=== PATIENT | female | born 1970 | race African-American/Black ===

== ENCOUNTER 2020-09-30 08:23 | Emergency (ER) | payer OTHER ==
[~2020-09-30] VITALS: Ht 162.6 cm; Wt 67.2 kg
[2020-09-30 09:00] LABS: EOSINOPHILS 1.2 % (0.0-3.0); HEMATOCRIT 49.4 % (37.0-47.0); HEMOGLOBIN 16.5 gm/dL (12.0-15.0); MCH 30.1 pg (26.0-34.0); MCHC 33.4 g/dL (28.0-37.0); PLATELET COUNT 304 thou/uL (150-400); POLYS 55.8 % (36.0-66.0); RBC 5.49 mil/uL (4.20-5.00); RDW 14.2 % (10.5-14.5); WBC 14.4 thou/uL (4.0-11.0)
[2020-09-30 09:14] LABS: ANION GAP 11 mmol/L (7-16); BUN 21 mg/dL (7-18); CALCIUM 9.3 mg/dL (8.5-10.1); CHLORIDE 94 mmol/L (98-107); CO2 28 mmol/L (21-32); CREATININE 0.9 mg/dL (0.6-1.0); GLUCOSE 160 mg/dL (74-106); POTASSIUM 3.6 mmol/L (3.5-5.1); SODIUM 133 mmol/L (136-145)
[2020-09-30 09:21] LABS: ALBUMIN 3.4 g/dL (3.4-5.0); DIRECT BILIRUBIN 0.1 mg/dL (<0.1-0.2); SGOT 58 U/L (15-37); SGPT 56 U/L (30-65); TOTAL BILIRUBIN 0.6 mg/dL (0.2-1.0); TROPONIN-I <0.06 ng/mL (<0.06)
--- NOTE | 2020-09-30 10:19 | EKG ---
[address] [address] [place] [address] ELECTROCARDIOGRAM REPORT Name: ELOISA ORDOÑEZ [id number] Admission: 09/30/20 Attend Phys: Discharge: Date of : 74 Report #: [id number] [facility] ED Test Date: 2020-09-30 Test Time: 08:39:02 Pat Name: ELOISA ORDOÑEZ Department: Room: Gender: F Qa Manager: N0 : 1970 Requested By: Kasandra Warner Order Number: [id number] MD: Abhijit Bowman Measurements Intervals [place] Rate: 104 P: 46 NH: 176 QRS: 84 QRSD: 89 T: 33 QT: 371 QTc: 488 Interpretive Statements Sinus tachycardia Probable anteroseptal infarct, old Baseline wander in lead(s) V6 No previous ECG available for comparison Electronically Signed On 09-30-2020 10:19:07 CDT by Abhijit Bowman [email or web address] <ELECTRONICALLY SIGNED> By: Abhijit Bowman MD, [facility] 09/30/20 1019 [id number] Abhijit Bowman MD, FACC /EPI
[2020-09-30 11:31] VITALS: BP 143/77
== END 2020-09-30 11:34 ==
LOC: ER 08:23
PROVIDERS: Emergency Medicine
DX: R06.2 Wheezing (principal); E11.9 Type 2 diabetes mellitus without complications; E78.5 Hyperlipidemia, unspecified; Z93.0 Tracheostomy status

== ENCOUNTER 2020-10-23 23:28 | Emergency (ER) | payer OTHER ==
[2020-10-24 00:14] LABS: ABSOLUTE NEUTROPHILS 7.2 thou/uL (1.4-8.2); BASOPHILS 0.4 % (0.0-2.0); HEMATOCRIT 41.3 % (37.0-47.0); HEMOGLOBIN 13.7 gm/dL (12.0-15.0); LYMPHOCYTES 18.2 % (24.0-44.0); MCH 30.3 pg (26.0-34.0); MCHC 33.3 g/dL (28.0-37.0); MCV 90.8 fL (80.0-100.0); MONOCYTES 15.9 % (1.0-8.0); PLATELET COUNT 286 thou/uL (150-400); POLYS 63.5 % (36.0-66.0); RBC 4.54 mil/uL (4.20-5.00); RDW 13.9 % (10.5-14.5); WBC 11.3 thou/uL (4.0-11.0)
[2020-10-24 00:18] LABS: CALCIUM 9.1 mg/dL (8.5-10.1); CREATININE 0.9 mg/dL (0.6-1.0); POTASSIUM 4.4 mmol/L (3.5-5.1)
[2020-10-24 00:22] LABS: ALBUMIN 3.1 g/dL (3.4-5.0); TOTAL BILIRUBIN 0.6 mg/dL (0.2-1.0); TOTAL PROTEIN 7.9 g/dL (6.4-8.2)
[2020-10-24] MEDS ORDERED: HYDROCHLOROTHIA50 MG PER TUBE (01:26)
[2020-10-24] MEDS ORDERED: HYDROXYZINE HCL25 M2 PO (01:27)
[2020-10-24] MEDS ORDERED: KEPPRA100 MG/1 M PER TUBE (01:28)
[2020-10-24] MEDS ORDERED: LIPITOR 10 MG10 M1 PER TUBE (01:29)
[2020-10-24] MEDS ORDERED: LOPERAMIDE2 MG PER TUBE (01:31)
[2020-10-24] MEDS ORDERED: LOPRESSOR50 MG PER TUBE (01:33)
[2020-10-24] MEDS ORDERED: POTASSIUM20 PER TUBE (01:33)
[2020-10-24] MEDS ORDERED: ZOLOFT100 MG PER TUBE (01:33)
[2020-10-24 03:57] VITALS: BP 140/102
== END 2020-10-24 04:00 | disposition short-term general hospital (02) ==
LOC: ER 23:28
PROVIDERS: Emergency Medicine
DX: K94.23 Gastrostomy malfunction (principal); J95.03 Malfunction of tracheostomy stoma; E11.9 Type 2 diabetes mellitus without complications; E78.5 Hyperlipidemia, unspecified; I10 Essential (primary) hypertension; F33.9 Major depressive disorder, recurrent, unspecified; Y83.8 Other surgical procedures as the cause of abnormal reaction of the patient, or of later complication, without mention of misadventure at the time of the procedure; Z86.73 Personal history of transient ischemic attack (TIA), and cerebral infarction without residual deficits; Z79.899 Other long term (current) drug therapy; Z86.718 Personal history of other venous thrombosis and embolism; Z99.81 Dependence on supplemental oxygen

== ENCOUNTER 2020-12-09 05:31 | Inpatient (IN) | payer OTHER ==
[~2020-12-09] VITALS: Ht 160 cm; Wt 68.0 kg
[~2020-12-09 05:31] MED LIST: HYDROCHLOROTHIA50 MG PER TUBE; HYDROXYZINE HCL25 M2 PO; KEPPRA100 MG/1 M PER TUBE; LIPITOR 10 MG10 M1 PER TUBE; LOPERAMIDE2 MG PER TUBE; LOPRESSOR50 MG PER TUBE; POTASSIUM CHLO20 MEQ PER TUBE; ZOLOFT100 MG PER TUBE
[2020-12-09 05:32] VITALS: BP 152/74
[2020-12-09 06:01] LABS: ABSOLUTE NEUTROPHILS 7.8 thou/uL (1.4-8.2); BASOPHILS 0.7 % (0.0-2.0); HEMATOCRIT 45.3 % (37.0-47.0); HEMOGLOBIN 15.1 gm/dL (12.0-15.0); LYMPHOCYTES 17.5 % (24.0-44.0); MCH 30.8 pg (26.0-34.0); MCHC 33.3 g/dL (28.0-37.0); MCV 92.5 fL (80.0-100.0); MONOCYTES 11.5 % (1.0-8.0); PLATELET COUNT 274 thou/uL (150-400); POLYS 69.3 % (36.0-66.0); RDW 13.7 % (10.5-14.5); WBC 11.3 thou/uL (4.0-11.0)
[2020-12-09 06:04] LABS: ANION GAP 14 mmol/L (7-16); BUN 18 mg/dL (7-18); CALCIUM 9.1 mg/dL (8.5-10.1); CHLORIDE 101 mmol/L (98-107); CO2 23 mmol/L (21-32); CREATININE 1.1 mg/dL (0.6-1.0); GLUCOSE 126 mg/dL (74-106); SODIUM 138 mmol/L (136-145)
[2020-12-09 06:14] LABS: ALBUMIN 3.5 g/dL (3.4-5.0); DIRECT BILIRUBIN 0.2 mg/dL (<0.1-0.2); SGOT 39 U/L (15-37); SGPT 47 U/L (14-59); TOTAL BILIRUBIN 0.6 mg/dL (0.2-1.0); TOTAL PROTEIN 8.5 g/dL (6.4-8.2); TROPONIN-I <0.06 ng/mL (<0.06)
[2020-12-09] MEDS ORDERED: ACETAMINOP325 MG/101 PER TUBE (06:30)
[2020-12-09] MEDS ORDERED: NORVASC10 MG PER TUBE (06:31)
[2020-12-09] MEDS ORDERED: AMIODARONE HCL400 MG PER TUBE (06:31)
[2020-12-09] MEDS ORDERED: ARICEPT10 M1 PER TUBE (06:32)
[2020-12-09 08:20] VITALS: BP 128/76
--- NOTE | 2020-12-09 08:51 | NUR ---
ATTEMPTED TO CALL REPORT, SPOKE TO LELA AND WAS NOTIFIED NO CHANGE CERTIFIED TOWER CLIMBER IS AVAILABLE FOR REPORT. NOTIFIED CHARGE AND PAGED RT TO ASSIST.
[2020-12-09 08:55] VITALS: BP 157/88
[2020-12-09 09:41] VITALS: BP 131/88
[2020-12-09] MEDS ORDERED: BACLOFEN5 MG PER TUBE (14:20)
[2020-12-09] MEDS ORDERED: BUSPIRONE HCL5 MG PER TUBE (14:22)
[2020-12-09] MEDS ORDERED: DANTROLENE SOD PER TUBE (14:24)
[2020-12-09] MEDS ORDERED: DEPAKOTE SPRIN125 MG PER TUBE (14:24)
[2020-12-09] MEDS ORDERED: DOCUSATE S50 MG/5 ML PER TUBE (14:25)
[2020-12-09] MEDS ORDERED: ELIQUIS5 MG PER TUBE (14:26)
[2020-12-09] MEDS ORDERED: HUMULINR100 SUBQ (14:29)
[2020-12-09] MEDS ORDERED: IPRAT-ALBUT 0.5-3 ML INH (14:32)
[2020-12-09] MEDS ORDERED: MELATIN3 MG PER TUBE (14:33)
[2020-12-09] MEDS ORDERED: MIDOL CAPLET1 EAC1 PER TUBE (14:37)
[2020-12-09] MEDS ORDERED: PRILOSEC10 MG PER TUBE (14:37)
[2020-12-09] MEDS ORDERED: TRANSDERM-SCOP1 EACH TRANSDERM (14:39)
[2020-12-09] MEDS ORDERED: SODIUM CHLORIDE1 G2 PER TUBE (14:40)
[2020-12-09] MEDS ORDERED: SSD CREAM 1% 5050 GM TOP (14:40)
[2020-12-09] MEDS ORDERED: VISINE TEARS DR15 ML OPHTHALMIC (14:41)
[2020-12-09] MEDS ORDERED: ONDANSETRON4 MG/5 ML PER TUBE (14:42)
[2020-12-09 14:46] VITALS: BP 136/87
--- NOTE | 2020-12-09 15:23 | EKG ---
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: : 1970 Requested By: Kasandra Warner Order Number: [id number] MD: Abhijit Bowman Measurements Intervals [place] Rate: 108 P: 69 [place]: 169 QRS: 113 QRSD: 89 T: 35 QT: 359 QTc: 481 Interpretive Statements Sinus tachycardia Left atrial enlargement Right axis deviation Probable anteroseptal infarct, old Minimal ST elevation, inferior leads Compared to ECG 09/30/2020 08:39:02 No significant change was found Electronically Signed On 12-09-2020 15:23:08 CDT by Abhijit Bowman [email or web address] <ELECTRONICALLY SIGNED> By: Abhijit Bowman MD, [facility] 12/09/20 1523 0618 7 Abhijit Bowman MD, [facility] /EPI
--- NOTE | 2020-12-09 18:29 | NUR ---
PATIENT ADMITTED TO ROOM EARLIER. SHE IS NON VERBAL. HAS A TRACH. PEG TUBE. FIGHTS AND GRAB STAFF WHEN PROVIDING CARE. KEPT CLEAN AND DRY. WILL CONT WITH PLAN OF CARE.
[2020-12-09 19:08] VITALS: BP 129/75
[2020-12-10 03:52] VITALS: BP 153/93
[2020-12-10 06:00] LABS: URINE BILIRUBIN NEGATIVE (Negative); URINE BLOOD 2+ (Negative); URINE CLARITY CLOUDY; URINE COLOR YELLOW; URINE GLUCOSE-RANDOM* NEGATIVE (Negative); URINE KETONES TRACE (Negative); URINE NITRITE-REFLEX NEGATIVE (Negative); URINE PROTEIN (DIPSTICK) TRACE (Negative); URINE SPECIFIC GRAVITY 1.025 (1.005-1.035)
[2020-12-10 06:03] LABS: CALCIUM 8.5 mg/dL (8.5-10.1); CREATININE 0.7 mg/dL (0.6-1.0); POTASSIUM 4.7 mmol/L (3.5-5.1)
[2020-12-10 06:05] LABS: URINE LEUKOCYTES-REFLEX 1+ (Negative)
[2020-12-10 06:06] LABS: CASTS None Seen /LPF (None Seen); MUCUS None Seen strn/LPF (None Seen); SQUAMOUS None Seen /LPF (0-3)
[2020-12-10 06:07] LABS: BACTERIA-REFLEX >30 Many /HPF (None Seen); CRYSTALS None Seen /LPF (None Seen); URINE RBC 1-2 Rare /HPF (NONE SEEN); URINE WBC-REFLEX 0-5 Rare /HPF (0-5)
--- NOTE | 2020-12-10 06:26 | NUR ---
PEG TUBE FEEDING AT 68ML AND 200ML H20 Q4. PT IS AMS, HAS CATATONIC LOOK, BUT WILL GRAB AND PULL AT YOU WITH LEFT HAND. POC WITH IVPB ANTIBIOTICS. MRSA PCR AND URINE SENT TO LAB. VSS. PT HAS PATCH BEHIND LEFT EAR. Q2 TURNS AND HOURLY ROUNDING.
[2020-12-10 06:58] LABS: HEMATOCRIT 35.6 % (37.0-47.0); MCH 31.9 pg (26.0-34.0); MCHC 34.6 g/dL (28.0-37.0); MCV 92.2 fL (80.0-100.0); RBC 3.86 mil/uL (4.20-5.00); RDW 13.9 % (10.5-14.5); WBC 6.4 thou/uL (4.0-11.0)
[2020-12-10 07:02] LABS: HEMOGLOBIN 12.3 gm/dL (12.0-15.0)
--- NOTE | 2020-12-10 07:06 | EKG ---
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 : 1970 Requested By: Glendy Santamaria Order Number: [id number] MD: Austin Arce Measurements Intervals [place] Rate: 111 P: 76 AR: 180 QRS: 101 QRSD: 76 T: 23 QT: 329 QTc: 447 Interpretive Statements Sinus tachycardia Right axis deviation Probable anteroseptal infarct, old ST elevation, consider inferior injury Compared to ECG 09/30/2020 08:39:02 Right-axis deviation now present ST (T wave) deviation now present Myocardial infarct finding still present Electronically Signed On 12-10-2020 7:05:51 CDT by Austin Arce [email or web address] <ELECTRONICALLY SIGNED> By: Austin Arce MD, FAC 12/10/20 0705 5 5 Austin Arce MD, [facility] /EPI
[2020-12-10 07:28] VITALS: BP 124/66
--- NOTE | 2020-12-10 07:39 | NUR ---
WOUND CARE CONSULT; PER NURSING STAFF PT CONTACTED BUT HAS NO WOUNDS, IN NEED OF LOW AIR LOSS PUMP TO BED, ORDERED TODAY, WILL DC WOUND CONSULT AND ADVISED STAFF TO REORDER IF NEEDED RECOMMENDATIONS; LOW AIR LOSS PUMP TO BED, TURN Q 2HOURS AND PRN, OFF LOADING, PROVIDE GOOD SKIN CARE SIGNALER AWARE
--- NOTE | 2020-12-10 11:42 | NUR ---
CM S/W WITH PT'S FATHER AND GERTRUDE W/[facility], PT HAS TRACH AND NONVERBAL. PER PARK, PT WAS LIVING IN [place] IN [facility] AND TRANSFERRED TO [facility] THEY COULD FIND LTC FACILITY IN THE AREA THAT WOULD ACCEPT TRACH. PT HAD STROKE AND SIEZURE IN JANUARY OF 2020. PRIOR TO STROKE PT WAS INDEPENDENT. PT HAS MEDICAID PENDING AND HAS BEEN AT [facility] FOR 6 MOS/PER GERTRUDE. PT IS W/C TO BEDBOUND. THE PLAN AT D/C IS FOR PT TO RTRN TO [facility]. CM TO CONT TO FOLLOW.
[2020-12-10 15:27] VITALS: BP 130/74
[2020-12-10 20:53] VITALS: BP 132/90
[2020-12-11 04:45] VITALS: BP 127/83
[2020-12-11 05:28] LABS: HEMATOCRIT 35.9 % (37.0-47.0); HEMOGLOBIN 12.3 gm/dL (12.0-15.0); MCH 31.6 pg (26.0-34.0); MCHC 34.2 g/dL (28.0-37.0); MCV 92.2 fL (80.0-100.0); RBC 3.89 mil/uL (4.20-5.00); RDW 13.6 % (10.5-14.5)
[2020-12-11 05:39] LABS: CALCIUM 8.8 mg/dL (8.5-10.1); CREATININE 0.8 mg/dL (0.6-1.0); PHOSPHORUS 2.9 mg/dL (2.6-4.7)
[2020-12-11 05:44] LABS: POTASSIUM 3.3 mmol/L (3.5-5.1)
[2020-12-11 07:31] VITALS: BP 142/75
--- NOTE | 2020-12-11 15:24 | NUR ---
SUSAN reviewed chart and spoke with nursing and attending physician. Pt is progressing towards goals for discharge. Discharge back to [facility] is anticipated for tomorrow. Pt remains on IV abx. Pt has trach/peg in place. SUSAN faxed clinical/therapy info to [facility] for review. Discussed with Manjula in admissions, who confirms they are able to accept pt back tomorrow. SUSAN spoke with pt's father, Benjamin, via phone to provide update and discuss discharge. Pt's father states he will be traveling for [place] to tomorrow and will plan to see pt tomorrow. He is agreeable with discharge plan. SUSAN is following to assist as needed with discharge planning.
[2020-12-11 15:53] VITALS: BP 138/86
--- NOTE | 2020-12-11 16:44 | NUR ---
CARE ASSUMMED THIS AM, PT NONVERBAL. ALERT TO SELF. UNABLE TO FOLLOW VERBAL COMMANDS. TRACH IN PLACE WITH OXYGEN. REPOSITION EVERY 2 HOURS. INCONTINENT OF BOWEL AND URINE. PEG TUBE IN PLACE, TF STOPPED THIS AT 9AM, WATER FLUSH PERR ORDER AND ZERO RESIDUAL SO FAR. ANTICIAPTING FOR D/C TMR. FALL PRECAUTIONS IN PLACE
[2020-12-11 19:18] VITALS: BP 140/75
[2020-12-12 03:42] VITALS: BP 121/73
[2020-12-12 07:34] VITALS: BP 130/79
--- NOTE | 2020-12-12 07:37 | NUR ---
PROGRESS PT ALERT NON VERBAL BUT SMILES AND NODS HEAD WHEN SPOKEN TO. RESISTS CARES PUSHES AND GRABS YOU, TRIES TO BEND YOUR FINGERS. PT IS VERY FEAFUL DURING PERICARE AND GETS VERY COMBATIVE. PULLED IV OUT DURING [facility]ARE AND HER STRUGGLE RESTARTED IN LVF 22 GAUGE. TUBE FEEDING AT 68CC/HR AL NIGHT RESIDUAL CHECKED WITH LESS THAN 10 CC EACH TIME, 200 CC H2O FLUSHS QHRS TOLERATED WELL. TRACH IN PLACE SUCTIONED NEEDED THIN FROTHY SECRETIONS. SHE USES YAUNKER TO SUCTION MOUTH INDEPENDENTLY. PLAN TO DISCHARGE BACK TO [facility] TODAY.
[2020-12-12] MEDS ORDERED: AUGMENTIN600 MG/5 M PER TUBE (08:44)
--- NOTE | 2020-12-12 11:30 | NUR ---
CARE ASSUMMED THIS AM, PT ALERT TO SELF. NONVERBAL AND UNABLE TO FOLLOW COMMANDS. TRACH IN PLACE WITH TRACH MASK. PEG TUBE IN PLACE, TF STOPPED AT 9AM, FLUSHES PER ORDER. PT INCONTINENT, CHANGED NEEDED. ANTICIPATING FOR D/C TODAY. REPOSITION EVERY [address] PRECAUTIONS IN PL[address] WILL CONTINUE TO MONITOR
--- NOTE | 2020-12-12 11:45 | NUR ---
vernon s/w bryan pineda at [facility]. [facility] is accepting of facility. cm faxed d/c orders to [phone]. miriam stated she will arrange transportation. cm to noified pt's fater of d/c dispostion. us agreed to make chart copy. pt bedside rn is agreeable to plan.
[2020-12-12 15:39] VITALS: BP 90/68
--- NOTE | 2020-12-12 16:47 | NUR ---
PT BELONGINGS PACKED. IV D/C. PEG TUBE CONTINUE TO BE IN PLACE. PT CLEANED UP. TRANSPORTATION HERE FOR PT. PT CHART COPY GIVEN TO EMS. CALLED REPORT TO [facility], NO ANSWER. WILL TRY AGAIN LATER
== END 2020-12-12 16:57 | DRG 871 ==
LOC: ER 05:31 → EROBS 08:29 → 3W 09:31
PROVIDERS: Emergency Medicine; Hospitalist; ADMIT Internal Medicine; ATTEND Internal Medicine
DX: A41.9 Sepsis, unspecified organism (principal); J69.0 Pneumonitis due to inhalation of food and vomit; J96.90 Respiratory failure, unspecified, unspecified whether with hypoxia or hypercapnia; J95.03 Malfunction of tracheostomy stoma; E46 Unspecified protein-calorie malnutrition; E78.5 Hyperlipidemia, unspecified; F41.1 Generalized anxiety disorder; F32.9 Major depressive disorder, single episode, unspecified; E11.9 Type 2 diabetes mellitus without complications; R13.10 Dysphagia, unspecified; Y83.8 Other surgical procedures as the cause of abnormal reaction of the patient, or of later complication, without mention of misadventure at the time of the procedure; Z20.822 Contact with and (suspected) exposure to COVID-19; Y82.8 Other medical devices associated with adverse incidents; Z86.73 Personal history of transient ischemic attack (TIA), and cerebral infarction without residual deficits; Z86.718 Personal history of other venous thrombosis and embolism; Z79.899 Other long term (current) drug therapy; Y92.89 Other specified places as the place of occurrence of the external cause; Z68.26 Body mass index [BMI] 26.0-26.9, adult
CPT/HCPCS: 10080

== ENCOUNTER 2020-12-18 14:34 | Emergency (ER) | payer OTHER ==
[~2020-12-18] VITALS: Ht 157.5 cm; Wt 86.2 kg
[~2020-12-18 14:34] MED LIST changes: +ACETAMINOP325 MG/101 PER TUBE; +AMIODARONE HCL400 MG PER TUBE; +ARICEPT10 M1 PER TUBE; +AUGMENTIN600 MG/5 M PER TUBE; +BACLOFEN5 MG PER TUBE; +BUSPIRONE HCL5 MG PER TUBE; +DANTROLENE SOD PER TUBE; +DEPAKOTE SPRIN125 MG PER TUBE; +DOCUSATE S50 MG/5 ML PER TUBE; +ELIQUIS5 MG PER TUBE; +HUMULINR100 SUBQ; +IPRAT-ALBUT 0.5-3 ML INH; +MELATIN3 MG PER TUBE; +MIDOL CAPLET1 EAC1 PER TUBE; +NORVASC10 MG PER TUBE; +ONDANSETRON4 MG/5 ML PER TUBE; +PRILOSEC10 MG PER TUBE; +SODIUM CHLORIDE1 G2 PER TUBE; +SSD CREAM 1% 5050 GM TOP; +TRANSDERM-SCOP1 EACH TRANSDERM; +VISINE TEARS DR15 ML OPHTHALMIC
[2020-12-18 20:18] VITALS: BP 176/125
== END 2020-12-18 20:19 | disposition home or self-care (01) ==
LOC: ER 14:34
DX: K94.23 Gastrostomy malfunction (principal); E11.9 Type 2 diabetes mellitus without complications; E78.5 Hyperlipidemia, unspecified; I10 Essential (primary) hypertension; Z86.711 Personal history of pulmonary embolism; Z86.718 Personal history of other venous thrombosis and embolism; Z86.73 Personal history of transient ischemic attack (TIA), and cerebral infarction without residual deficits; Z79.4 Long term (current) use of insulin

== ENCOUNTER 2020-12-23 12:26 | Inpatient (IN) | payer OTHER ==
[~2020-12-23] VITALS: Ht 162.6 cm; Wt 66.2 kg
[2020-12-23 12:30] VITALS: BP 134/85
[2020-12-23 15:49] LABS: HEMATOCRIT 39.5 % (37.0-47.0); HEMOGLOBIN 13.6 gm/dL (12.0-15.0); MCHC 34.4 g/dL (28.0-37.0); MCV 90.1 fL (80.0-100.0); RBC 4.38 mil/uL (4.20-5.00); RDW 12.6 % (10.5-14.5); WBC 11.5 thou/uL (4.0-11.0)
[2020-12-23 16:03] LABS: ALBUMIN 3.3 g/dL (3.4-5.0); CALCIUM 9.1 mg/dL (8.5-10.1); POTASSIUM 3.3 mmol/L (3.5-5.1); TOTAL BILIRUBIN 0.5 mg/dL (0.2-1.0); TOTAL PROTEIN 7.9 g/dL (6.4-8.2)
[2020-12-23 16:04] LABS: APTT 25.2 Seconds (24.5-32.8); INR 1.1; PROTIME 11.9 Seconds (10.5-12.1)
--- NOTE | 2020-12-23 17:53 | NUR ---
PT MOVED TO ED ROOM 8 AT THIS TIME. RT AT BEDSIDE TO SUCTION PT TRACH AT THIS TIME
[2020-12-23 20:34] VITALS: BP 118/84
[2020-12-23 20:46] VITALS: BP 133/97
[2020-12-23 21:00] VITALS: BP 158/108
[2020-12-23 22:38] LABS: URINE BILIRUBIN NEGATIVE (Negative); URINE BLOOD NEGATIVE (Negative); URINE CLARITY CLEAR; URINE COLOR YELLOW; URINE GLUCOSE-RANDOM* NEGATIVE (Negative); URINE KETONES NEGATIVE (Negative); URINE NITRITE-REFLEX NEGATIVE (Negative); URINE PROTEIN (DIPSTICK) NEGATIVE (Negative); URINE SPECIFIC GRAVITY <= 1.005 (1.005-1.035); URINE UROBILINOGEN 0.2 E.U./dl (0.2-1.0)
[2020-12-23 22:40] LABS: URINE LEUKOCYTES-REFLEX 1+ (Negative)
[2020-12-23 22:53] LABS: BACTERIA-REFLEX None Seen /HPF (None Seen); CASTS None Seen /LPF (None Seen); CRYSTALS None Seen /LPF (None Seen); MUCUS None Seen strn/LPF (None Seen); SQUAMOUS 0-3 Few /LPF (0-3); URINE RBC None Seen /HPF (NONE SEEN); URINE WBC-REFLEX 0-5 Rare /HPF (0-5); YEAST-REFLEX Present (None Seen)
--- NOTE | 2020-12-24 02:15 | NUR ---
PT ADMITTED TO UNIT AT AROUND 2100 HRS. AWAKE. NON VERBAL. RESPONDS BY SMILING. DOES NOT FOLLOW COMMANDS PER BASELINE. ACCUCHECK OF 98. FROM [facility], NEEDS PEG TUBE REPLACED. WITH CONTRACTURES ON RIGHT SIDE. PT LEFT HAND VERY BUSY AND WILL GRAB AT ANYONE TRYING TO DO ANYTHING FOR HER. ROOM AIR, TRACH COLLAR IN PLACE.INCONTINENT OF BLADDER. SKIN INTACT. NO EDEMA. NEW IV PLACED TO LEFT HAND, IV KEPPRA.PT DOES NOT APPEAR TO BE IN DISTRESS. WILL CONT WITH POC TILL EOS.
[2020-12-24 03:39] VITALS: BP 145/82
[2020-12-24 08:10] VITALS: BP 139/89
--- NOTE | 2020-12-24 08:34 | NUR ---
ASSESSMENT: CM REVIEWED CHART. PATIENT WAS ADMITTED DUE TO PEG TUBE COMING OUT. PT WAS JUST RECENTLY HERE AT [facility] FOR SEPSIS/PNEUMONIA AND DISCHARGED BACK TO HER LTC FACILITY [facility]. PT ALSO RECENTLY WAS BACK AT [facility] DUE TO PEG TUBE BEING DISLODGED AND WAS SENT BACK TO [facility] HOWEVER IT IS NOW OUT AGAIN. PT IS BEDBOUND AND NONVERBAL AND HAS HX OF CVA, CHRONIC DYSPHAGIA. CM REACHED OUT TO LIASON AT [facility] TO NOTIFY OF ADMISSIONS AND FAXED UPDATED CLINICAL. GI HAS BEEN CONSULTED. LIASON FROM [facility] STATING PATIENT IS MEDICAID PENDING. CM NOTIFIED UR RN PATIENT IS CURRENTLY SHOWING PATIENT PAY HERE. CM ALSO SPOKE WITH PATIENTS FATHER/GUARDIAN PARK TO UPDATE. CM WILL CONTINUE TO FOLLOW TO ASSIST NEEDED.
--- NOTE | 2020-12-24 09:09 | NUR ---
ORDERS FOR EVAL AND TREAT. Pt IS NON-VERBAL BUT ABLE TO NOD YES AND NO. Pt IS DEPENDENT FOR TRANSFERS USING MECHANICAL LIFT. Pt ABLE TO WIGGLE LT FOOT AND LIFT LT HAND BUT THAT WAS ALL. Pt NOT A CANDIDATE FOR THERAPY IN THE ACUTE SETTING THERE ARE NO FUNCTIONAL GOALS.
--- NOTE | 2020-12-24 09:44 | NUR ---
ORDERS FOR OT EVAL AND TREAT, CHART REVIEWED. PATIENT ADMIT FROM LTC, NON- VERBAL AT BASELINE. DEPENDENT FOR TRANSFERS WITH LIFT AND ADLS D/T SEVERE RUE SPASTICITY FROM PRIOR LARGE CVA. PATIENT IS TRACH DEPENDENT. NOT APPROPRIATE FOR OT IN ACUTE SETTING. WILL SIGN OFF.
--- NOTE | 2020-12-24 10:13 | NUR ---
When PEG replaced and ready to use, recommend start pts usual TF of jevity 1.5, 68ml/hr 8827-4695 (16hr) and add water flushes of 200 ml every 4hr
--- NOTE | 2020-12-24 10:18 | NUR ---
ASSUMED CARE OGF PT AT 0700 THIS MORNING. PT WAS SLEEPING DURING REPORT. PT IS NONVERBAL DUE TO HX OF CVA AND TRACHEOSTOMY. PT WILL OPEN EYES TO VOICE AND WILL EXPRESS THROUGH FACIAL RESPONSES. RIGHT SIDE CONTRACTURED WITH HEMIPARESIS. IV IN LEFT HAND SL WITH SCHEDULED ANTIBIOTICS. SKIN INTACT WITH NO TENTING, W/D/ATR, ASSESSMENTS OTHERWISE UNREMARKABLE. CALL LIGHT AND OTHER NEEDS ARE WITHIN REACH, MEDS AND TX GIVEN NEEDED AND SCHEDULED.
[2020-12-24 18:08] VITALS: BP 150/94
[2020-12-24 19:01] VITALS: BP 157/106
[2020-12-25 03:57] VITALS: BP 157/104
--- NOTE | 2020-12-25 04:07 | NUR ---
PT NON VERBAL, RESPONDS OCCASIONALLY WITH SMILES.NEW IV PLACED TO LEFT HAND.PT IS INCONTINENT. TRACH IN PLACE. PT WAS HAVING WHEEZING AND INCREASED SOA.RT TREATMENT GIVEN, TRACH TUBE CHANGED, HUMIDIFIED OXYGEN PROVIDED AT 35%, CONT PULSE OX ALSO INITIATED. PT APPEARS COMFORTABLE SINCE THEN. PLAN FOR PEG PLACEMENT IN THE AM.
[2020-12-25 08:59] VITALS: BP 140/95
[2020-12-25 09:14] LABS: HEMATOCRIT 40.2 % (37.0-47.0); HEMOGLOBIN 13.6 gm/dL (12.0-15.0); MCH 30.8 pg (26.0-34.0); MCHC 33.8 g/dL (28.0-37.0); MCV 91.2 fL (80.0-100.0); RBC 4.41 mil/uL (4.20-5.00); RDW 12.7 % (10.5-14.5); WBC 6.7 thou/uL (4.0-11.0)
[2020-12-25 09:22] LABS: CALCIUM 9.3 mg/dL (8.5-10.1); CREATININE 1.2 mg/dL (0.6-1.0); MAGNESIUM 2.2 mg/dL (1.8-2.4); POTASSIUM 3.1 mmol/L (3.5-5.1)
--- NOTE | 2020-12-25 10:21 | NUR ---
Assumed care of pt at 0700. Pt nonverbal. Does not seem in discomfort. Q2h turn. Will habe peg tube placed today. Guardian called and notified. Frequent rounding. Cont pulse ox in place. Fall precautions in place. Will continue to monitor.
--- NOTE | 2020-12-25 11:41 | NUR ---
ANESTHESIA REQUEST TO EXCHANGE CUFFLESS TRACH TO CUFFED TRACH IN PRE-OP. [facility] 4DCFS EXCHANGED WITH [facility] 4DCT WITHOUT INCIDENT. PT TOLERATED FAIR WITH SPASTIC COUGH AFTER EXCHANGE.
[2020-12-25 14:10] VITALS: BP 137/87
--- NOTE | 2020-12-25 15:03 | NUR ---
ON-GOING ASSESSMENT: CM REVIEWED CHART AND SPOKE WITH ATTENDING. PLANS ARE FOR PATIENT TO HAVE PEG TUBE PLACED TODAY. POSSIBLE DISCHARGE BACK TO FACILITY SOON. CM FAXED UPDATED CLINICAL TO [facility] AND NOTIFIED ADMISSIONS. CM WILL CONTINUE TO FOLLOW TO ASSIST NEEDED.
[2020-12-25 16:54] VITALS: BP 134/86
[2020-12-25 19:40] VITALS: BP 143/90
[2020-12-26 04:20] VITALS: BP 148/89
--- NOTE | 2020-12-26 04:57 | NUR ---
ASSUMED CARE OF PT AT SHIFT CHANGE. PT IS ALERT BUT IS NON-VERBAL. FALL PRECAUTION IN PLACE. PT APPEARS TO BE COMFORTABLE. ASSESSMENT CHARTED. TF CONTINUED AT GOAL RATE AND FLUSHED PER ORDER. PT TURNED Q2H. PT IS INCT. PT WAS ABLE TO GET COMFORTABLE AND SLEEP PART OF THE SHIFT. WILL CONTINUE TO MONITOR FOR CHANGES.
[2020-12-26 07:51] VITALS: BP 149/87
--- NOTE | 2020-12-26 10:28 | NUR ---
ASSUMED PT CARE AROUND 0700. PT ALERT, NON VERBAL. IV LEFT HAND SALINE LOCKED. TUBE FEEDING IN PLACE, TUBE FEEDING STOPPED AT 0900. ABDOMINAL BINDER IN PLACE . INCONTINENT OF BOWEL AND BLADDER. REPOSITIONING Q 2HRS. BLOOD SUGAR CHECK Q6HRS. FALL PRECAUTION IN PLACE. WILL CONTINUE TO MONITOR.
--- NOTE | 2020-12-26 15:34 | P ---
[facility] [place] [address] PROCEDURE REPORT Name: ELOISA ORDOÑEZ Room #: 435[facility] IN M.R.#: [id number] Admission: 12/23/20 Attend Phys: Melecio Zepeda MD Discharge: 12/26/20 Date of : 74 Report #: [id number] THIS REPORT FOR: cc: Maikel Noel MD, Christopher B. MD McElhinney, Christian C. MD ~ DOC #: [id number] cc: MD Lazaro Hemphill MD DATE OF SERVICE: 12/25/2020 PROCEDURE PERFORMED: Upper endoscopy with PEG tube placement. HISTORY OF PRESENT ILLNESS: The patient is a 50-year-old female who is nonverbal, status post CVA in the past, who is PEG tube dependent, apparently pulled out her PEG tube, this was happened in the past reportedly. They tried to replace it in the Emergency Room, but was unsuccessful. She is unable to give any history. She has a tracheostomy. She was on omeprazole, but also apixaban, last dose 2 days ago. Plan is for PEG tube placement as she is dependent on this for nutrition. DESCRIPTION OF PROCEDURE: The risks and benefits of the procedure were explained to the patient's durable power of patent prosecution attorney. Those risks including, but not limited to bleeding, perforation and the risk of sedation as well as the potential risk of infection. They understood these risks and gave informed consent. The procedure was performed using propofol per anesthesia. She was given 2 grams of Ancef prior to the procedure. Next, using a standard Olympus upper endoscope, the scope was placed in the patient's mouth and advanced under direct vision through the esophagus, stomach and into the second portion of the duodenum. The esophagus was normal throughout. The GE junction was normal. Overall, the gastric mucosa was normal other than the previous PEG tube site fistula opening was noted. This was essentially closed at this time, but the erythema in the gastric lumen was noted, otherwise normal gastric mucosa. The pylorus was normal and patent. The duodenal bulb, first and second portion were all normal. The scope was then brought back up into the patient's stomach and the stomach was insufflated with air. Good transillumination was noted through the anterior abdominal wall near the previous PEG tube site. The skin was then marked and cleaned with chlorhexidine solution. A sterile drape was then put in place. Next lidocaine was used for local anesthetic. Next, using a seeker needle, the needle was advanced through the anterior abdominal wall into the gastric lumen under direct vision without difficulty. The needle was then withdrawn. Next, a 1 cm transverse incision was made through the skin. Next, using a catheter needle, the needle was advanced through the mid portion of the incision again into the gastric lumen under direct vision. The needle was removed. The catheter remained in place. A blue guidewire was inserted through [address] [address] PROCEDURE REPORT Name: ELOISA ORDOÑEZ Room #: 435-P [facility] IN M.R.#: [id number] Admission: 12/23/20 Attend Phys: Melecio Zepeda MD Discharge: 12/26/20 Date of : 74 Report #: [id number] the needle. This was grasped with a snare through the endoscope and then brought back up to the patient's mouth. Next, a 20-Greek PEG tube was then secured to the blue guidewire and using a pull technique, was put into place without difficulty. The scope was reintroduced into the patient's stomach. The PEG tube bumper was noted to be in good position in the mid body of the stomach. At this point, the scope was then withdrawn and the PEG tube was then secured to the anterior abdominal wall and the procedure terminated. The patient tolerated the procedure well. IMPRESSION: 1. Status post placement of a new PEG tube as described above. 2. Otherwise, normal upper endoscopy. RECOMMENDATIONS: Okay to start using PEG tube for medications this afternoon. Can start using PEG tube for nutrition this evening. An abdominal binder was placed to hopefully prevent the patient pulling out the PEG tube again in the future. Thank you for allowing me to participate in her care. Lazaro Ureña MD [facility]/SUE <ELECTRONICALLY SIGNED> By: Lazaro Ureña MD 12/26/20 1534 1203 [id number] Lazaro Ureña MD /nt
--- NOTE | 2020-12-27 07:47 | NUR ---
late entry from 12/26/20:on-going assessment: CM REVIEWED CHART. PATIENTS HAS ORDERS TO DISCHARGE BACK TO [facility] TODAY. CM NOTIFIED PATIENTS FATHER/GUARDIAN PARK WHO IS AGREEABLE WITH PLAN. CM NOTIFIED LIACLEM LOREDO FROM [facility] AND THEY CAN ACCEPT BACK TODAY. CM FAXED DISCHARGE PAPERWORK AND CONFIRMED THEY RECEIVED IT. [facility] FORM WAS COMPLETED AND ARRANGED FOR 1300 PICKUP TIME. CM NOTIFIED BEDSIDE RN WELL PATIENTS FATHER PARK WHO IS AGREEABLE. CM NOTIFIED GERTRUDE AT [facility] OF TRANSPORT TIME. CHART COPY WAS ORDERED. CASE CLOSED.
== END 2020-12-26 14:36 | DRG 393 ==
LOC: ER 12:26 → 4S 14:13 → EROBS 14:13 → 4S 20:46
PROVIDERS: ADMIT Internal Medicine; ATTEND Internal Medicine
PROC: 0D20XUZ Change Feeding Device in Upper Intestinal Tract, External Approach (ICD-10-PCS; principal; 2020-12-25)
DX: K94.23 Gastrostomy malfunction (principal); J96.90 Respiratory failure, unspecified, unspecified whether with hypoxia or hypercapnia; Y83.8 Other surgical procedures as the cause of abnormal reaction of the patient, or of later complication, without mention of misadventure at the time of the procedure; Y82.8 Other medical devices associated with adverse incidents; F41.1 Generalized anxiety disorder; E78.5 Hyperlipidemia, unspecified; E11.9 Type 2 diabetes mellitus without complications; K21.9 Gastro-esophageal reflux disease without esophagitis; F32.9 Major depressive disorder, single episode, unspecified; I10 Essential (primary) hypertension; Z20.822 Contact with and (suspected) exposure to COVID-19; Z79.01 Long term (current) use of anticoagulants; Z79.4 Long term (current) use of insulin; Z79.899 Other long term (current) drug therapy; Z86.73 Personal history of transient ischemic attack (TIA), and cerebral infarction without residual deficits; Y92.198 Other place in other specified residential institution as the place of occurrence of the external cause; Z86.718 Personal history of other venous thrombosis and embolism; Z86.711 Personal history of pulmonary embolism; Z74.01 Bed confinement status
CPT/HCPCS: 10195; 62110; 62900; 70005

== ENCOUNTER 2021-02-20 23:13 | Emergency (ER) | payer OTHER ==
[~2021-02-20] VITALS: Ht 167.6 cm; Wt 68.0 kg
[2021-02-20 23:36] LABS: ABSOLUTE NEUTROPHILS 4.1 thou/uL (1.4-8.2); BASOPHILS 0.5 % (0.0-2.0); EOSINOPHILS 1.4 % (0.0-3.0); HEMATOCRIT 39.5 % (37.0-47.0); HEMOGLOBIN 13.7 gm/dL (12.0-15.0); LYMPHOCYTES 16.8 % (24.0-44.0); MCH 30.4 pg (26.0-34.0); MCHC 34.7 g/dL (28.0-37.0); MCV 87.5 fL (80.0-100.0); MONOCYTES 19.5 % (1.0-8.0); PLATELET COUNT 198 thou/uL (150-400); POLYS 61.8 % (36.0-66.0); RBC 4.51 mil/uL (4.20-5.00); RDW 12.6 % (10.5-14.5); WBC 6.7 thou/uL (4.0-11.0)
[2021-02-21] LABS: CALCIUM 8.9 mg/dL (8.5-10.1); POTASSIUM 3.1 mmol/L (3.5-5.1)
[2021-02-21 00:01] LABS: MAGNESIUM 1.9 mg/dL (1.8-2.4)
[2021-02-21 00:25] LABS: URINE BILIRUBIN NEGATIVE (Negative); URINE BLOOD NEGATIVE (Negative); URINE CLARITY CLEAR; URINE COLOR YELLOW; URINE GLUCOSE-RANDOM* NEGATIVE (Negative); URINE KETONES NEGATIVE (Negative); URINE LEUKOCYTES-REFLEX NEGATIVE (Negative); URINE NITRITE-REFLEX NEGATIVE (Negative); URINE PROTEIN (DIPSTICK) 2+ (Negative); URINE SPECIFIC GRAVITY 1.025 (1.005-1.035)
[2021-02-21 01:09] LABS: BACTERIA-REFLEX 1-9 Few /HPF (None Seen); CRYSTALS None Seen /LPF (None Seen); HYALINE CASTS 4-10 Moderate /LPF (None Seen); MUCUS 0-3 Light strn/LPF (None Seen); SQUAMOUS 0-3 Few /LPF (0-3); URINE RBC 1-2 Rare /HPF (NONE SEEN); URINE WBC-REFLEX 0-5 Rare /HPF (0-5)
[2021-02-21 04:50] VITALS: BP 127/68
== END 2021-02-21 04:50 | disposition home or self-care (01) ==
LOC: ER 23:13
PROVIDERS: Emergency Medicine
DX: E86.0 Dehydration (principal); R41.82 Altered mental status, unspecified; E11.9 Type 2 diabetes mellitus without complications; E78.5 Hyperlipidemia, unspecified; Z79.1 Long term (current) use of non-steroidal anti-inflammatories (NSAID); Z79.891 Long term (current) use of opiate analgesic; Z79.899 Other long term (current) drug therapy; Z79.4 Long term (current) use of insulin